=== PATIENT | female | born 1985 | race African-American/Black ===

== ENCOUNTER 2017-09-21 11:35 | Emergency (ER) | payer MEDICAID ==
[~2017-09-21] VITALS: Ht 170.2 cm; Wt 71.0 kg
[2017-09-21 11:44] VITALS: BP 129/75
[2017-09-21] MEDS ORDERED: FLUO10CA25 PO (11:47)
[2017-09-21] MEDS ORDERED: MIRT15TA PO (11:47)
== END 2017-09-21 19:45 | disposition left against medical advice (07) ==
LOC: ER 13:16
DX: R51 Headache (principal); Z53.21 Procedure and treatment not carried out due to patient leaving prior to being seen by health care provider

== ENCOUNTER 2018-07-01 13:30 | Emergency (ER) | payer MEDICAID ==
[~2018-07-01] VITALS: Ht 170.2 cm; Wt 67.8 kg
[~2018-07-01 13:30] MED LIST: FLUO10CA25 PO; MIRT15TA PO
[2018-07-01] MEDS ORDERED: ONDANSETRON HCL 4MG/2ML INJ IV STA (14:40)
[2018-07-01] MEDS ORDERED: SODIUM CHLORIDE 0.9% 1,000 ML IV ONE (14:40)
[2018-07-01] MEDS ORDERED: MORPHINE SULFATE 4 MG/ML CPJ (NOT FOR IM USE) IV STA (14:40)
[2018-07-01 15:46] LABS: BASOPHILS % 0.9 % (0.0-2.0); EOSINOPHILS % 1.8 % (0.0-5.0); HEMATOCRIT. 37.6 % (36.0-48.0); HEMOGLOBIN. 12.5 g/dL (12.0-16.0); LYMPHOCYTES % 35.8 % (20.0-50.0); MEAN CORPUSCULAR HEMOGLOBIN 27.9 pg (28.0-32.0); MEAN CORPUSCULAR VOLUME 83.8 fL (81.0-99.0); MEAN PLATELET VOLUME 9.1 fl (7.4-10.4); MONOCYTES % 8.5 % (2.0-8.0); PLATELET 213 x1000/uL (130-400); RED BLOOD CELL COUNT 4.48 mill/uL (4.2-5.4); RED CELL DISTRIBUTION WIDTH 15.1 % (11.6-14.6)
[2018-07-01 15:47] LABS: INR 1.1; PROTHROMBIN TIME 10.7 sec (9.1-11.1)
[2018-07-01 17:01] LABS: CHLORIDE 109 mEq/L (98-107)
[2018-07-01 17:08] LABS: CLARITY URINE CLEAR (CLEAR); COLOR URINE YELLOW (YELLOW); KETONES URINE TRACE (NEGATIVE); LEUKOCYTE ESTERASE URINE NEGATIVE (NEGATIVE); NITRITE URINE NEGATIVE (NEGATIVE); OCCULT BLOOD URINE NEGATIVE (NEGATIVE); PROTEIN URINE NEGATIVE (NEGATIVE); SPECIFIC GRAVITY URINE 1.021 (1.005-1.030)
[2018-07-01 20:50] VITALS: BP 110/68
[2018-07-02] MEDS ORDERED: IOHEXOL-300 100 ML BOTTLE ONE (14:38)
== END 2018-07-01 20:51 | disposition home or self-care (01) ==
LOC: ER 13:30
DX: R10.30 Lower abdominal pain, unspecified (principal); N83.202 Unspecified ovarian cyst, left side; J90 Pleural effusion, not elsewhere classified; J98.11 Atelectasis; F32.9 Major depressive disorder, single episode, unspecified; F12.10 Cannabis abuse, uncomplicated; R03.0 Elevated blood-pressure reading, without diagnosis of hypertension; Z88.8 Allergy status to other drugs, medicaments and biological substances
CPT/HCPCS: 36415; 71045; 74177; 76830; 76856; 80053; 81003; 81025; 83690; 85025; 85610; 96361; 96374; 96375; 99285; J2270; J2405; J7030; Q9967

== ENCOUNTER 2019-02-17 12:40 | Emergency (ER) | payer MEDICAID ==
[~2019-02-17] VITALS: Ht 170.2 cm; Wt 58.0 kg
[2019-02-17] MEDS ORDERED: MORPHINE SULFATE 4 MG/ML CPJ (NOT FOR IM USE) IV STA (17:58)
[2019-02-17] MEDS ORDERED: ONDANSETRON HCL 4MG/2ML INJ IV STA (17:58)
[2019-02-17] MEDS ORDERED: SODIUM CHLORIDE 0.9% 1,000 ML IV ONE (17:58)
[2019-02-17 18:09] LABS: CLARITY URINE CLEAR (CLEAR); COLOR URINE YELLOW (YELLOW); KETONES URINE 1+ (NEGATIVE); LEUKOCYTE ESTERASE URINE NEGATIVE (NEGATIVE); NITRITE URINE NEGATIVE (NEGATIVE); OCCULT BLOOD URINE 1+ (NEGATIVE); PROTEIN URINE TRACE (NEGATIVE); SPECIFIC GRAVITY URINE 1.027 (1.005-1.030)
[2019-02-17 18:11] LABS: BASOPHILS % 0.9 % (0.0-2.0); EOSINOPHILS % 0.5 % (0.0-5.0); HEMOGLOBIN. 11.7 g/dL (12.0-16.0); LYMPHOCYTES % 43.7 % (20.0-50.0); MEAN CORPUSCULAR VOLUME 83.7 fL (81.0-99.0); MEAN PLATELET VOLUME 9.4 fl (7.4-10.4); MONOCYTES % 7.3 % (2.0-8.0); NEUTROPHILS % 47.6 % (40.0-76.0); PLATELET 193 x1000/uL (130-400); RED BLOOD CELL COUNT 4.18 mill/uL (4.2-5.4); RED CELL DISTRIBUTION WIDTH 14.7 % (11.6-14.6)
[2019-02-17 18:12] LABS: CHLORIDE 111 mEq/L (98-107)
[2019-02-17] MEDS ORDERED: KETOROLAC 30MG/ML VIAL IV ONE (19:45)
[2019-02-17 22:09] VITALS: BP 119/73
== END 2019-02-17 22:11 | disposition home or self-care (01) ==
LOC: ER 13:44
DX: K52.9 Noninfective gastroenteritis and colitis, unspecified (principal); F12.90 Cannabis use, unspecified, uncomplicated
CPT/HCPCS: 36415; 80053; 81003; 81025; 83690; 85025; 96361; 96374; 96375; 99283; J1885; J2270; J2405; J7030; Z7610